=== PATIENT | female | born 1980 | race Caucasian/White ===

== ENCOUNTER 2018-02-09 22:29 | Emergency (ER) | payer OTHER ==
[2018-02-09 22:43] VITALS: BP 116/77; PULSE 84; TEMP 98.7; BMI 51.1
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
[2018-02-09] MEDS ORDERED: IBUPROFEN 400 MG TABLET (FP) PO ONE ×2 (23:19→23:45)
== END 2018-02-10 01:17 | disposition home or self-care (01) ==
LOC: JERFT 22:29
DX: M54.2 Cervicalgia (principal); M54.5 Low back pain; M25.561 Pain in right knee; V43.52XA Car driver injured in collision with other type car in traffic accident, initial encounter; Y92.488 Other paved roadways as the place of occurrence of the external cause; Y93.89 Activity, other specified; Y99.8 Other external cause status
CPT/HCPCS: 99281-25